=== PATIENT | male | born 1990 | race Caucasian/White ===

== ENCOUNTER 2018-05-21 13:40 | Emergency (ER) | payer SELFPAY ==
[2018-05-21 13:42] VITALS: BP 142/92; PULSE 87; RESP 18; TEMP 36.7; O2SAT 98; BMI 29.6
--- NOTE | 2018-05-21 13:55 | ED.VISSUMM ---
- ER Visit Summary Date of Service: 05/21/18 Chief Complaint: Foot pain History of Present Illness: The patient is a 27 M with right foot pain for over 2 months. Worse after playing basketball. Worse throughout the day. 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 No direct trauma. No history of this. No other complaints. Physical Examination: Wearing sandals. Tenderness to palpation of the right plantar fascia. Otherwise foot nontender. Normal inspection. Neurovascularly intact. Test Results: None indicated Emergency Department Course and Treatment: Patient has signs and symptoms of plantar fasciitis. Home therapies were discussed. Use anti-inflammatories. Wear supportive footwear. Follow-up as an outpatient. Return for any new or worsening symptoms. Treatment Plan: As above Disposition: Discharged Impression: Right plantar fasciitis This note was generated with [employer] dictation software. It may contain incorrect words, spelling, and punctuation that were not noted in review of the chart prior to signing ED Disposition - Plan for ED Patient: Chief Complaint: Lower Extremity Injury Referrals: Wally Roberts MD [Primary Care Provider] -
--- NOTE | 2018-05-21 13:59 | ED.DCSUM_ITS ---
- ER Visit Summary Date of Service: 05/21/18 Chief Complaint: Foot pain History of Present Illness: The patient is a 27 M with right foot pain for over 2 months. Worse after playing basketball. Worse throughout the day. 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 No direct trauma. No history of this. No other complaints. Physical Examination: Wearing sandals. Tenderness to palpation of the right plantar fascia. Otherwise foot nontender. Normal inspection. Neurovascularly intact. Test Results: None indicated Emergency Department Course and Treatment: Patient has signs and symptoms of plantar fasciitis. Home therapies were discussed. Use anti-inflammatories. Wear supportive footwear. Follow-up as an outpatient. Return for any new or worsening symptoms. Treatment Plan: As above Disposition: Discharged Impression: Right plantar fasciitis This note was generated with [employer] dictation software. It may contain incorrect words, spelling, and punctuation that were not noted in review of the chart prior to signing ED Disposition - Plan for ED Patient: Chief Complaint: Lower Extremity Injury Referrals: Wally Roberts MD [Primary Care Provider] -
--- NOTE | 2018-05-21 13:59 | ED.DEP ---
ED Disposition - Plan for ED Patient: Chief Complaint: Lower Extremity Injury Instructions: ED Plantar Fasciitis Referrals: Gilberto Heath DPM [STAFF PHYSICIAN] -
== END 2018-05-21 14:18 | disposition home or self-care (01) ==
LOC: ED 14:14
PROVIDERS: Emergency Provider Emergency Medicine; Family Provider Family Medicine; PCP Family Medicine
DX: M72.2 Plantar fascial fibromatosis (principal); Z72.0 Tobacco use
CPT/HCPCS: 99282

== ENCOUNTER 2020-01-03 06:17 | Emergency (ER) | payer BC, SELFPAY ==
[2020-01-03 06:18] VITALS: BP 134/80; PULSE 106; RESP 16; TEMP 36.8; O2SAT 98; BMI 29.5
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
[2020-01-03 07:59] VITALS: BP 129/76; PULSE 99; RESP 14; O2SAT 99
== END 2020-01-03 08:02 | disposition home or self-care (01) ==
PROVIDERS: Emergency Provider Emergency Medicine; PCP Family Medicine
DX: S51.011A Laceration without foreign body of right elbow, initial encounter (principal); W01.0XXA Fall on same level from slipping, tripping and stumbling without subsequent striking against object, initial encounter; Y93.9 Activity, unspecified; Y92.9 Unspecified place or not applicable; F17.200 Nicotine dependence, unspecified, uncomplicated
CPT/HCPCS: 12002; 99282

== ENCOUNTER 2020-05-22 16:04 | Emergency (ER) | payer BC, SELFPAY ==
[2020-05-22 16:05] VITALS: BP 121/80; PULSE 91; RESP 16; TEMP 36.4; O2SAT 98; BMI 30.4
[2020-05-22] MEDS: HYDROcodone Bitartrate/Apap 5/325 Tablet PO (16:51)
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
--- NOTE | 2020-05-22 17:45 | DCINST.ED_ITS ---
ED Disposition - Plan for ED Patient: Disposition: Home or Assisted Living Instructions: ED Clavicle Fracture Prescriptions: Hydrocodone/Acetaminophen [[place] 7.5-325 Tablet] 1 ea PO Q4H PRN PRN 5 Days #20 tab PRN Reason: Pain Or Fever Prescription Printed Referrals: Jp Hamilton MD [STAFF PHYSICIAN] - Additional Instructions: Ice to your collarbone to decrease pain and swelling. Sling to immobilize your shoulder. Motrin and [place] for pain. Call and follow-up with orthopedic physician Dr. Piter Hamilton for further evaluation of your collarbone or clavicle fracture.
[2020-05-22 18:00] VITALS: BP 118/86; PULSE 82; RESP 18; O2SAT 98
== END 2020-05-22 18:01 | disposition home or self-care (01) ==
PROVIDERS: Emergency Provider Emergency Medicine; PCP Family Medicine
DX: S42.022A Displaced fracture of shaft of left clavicle, initial encounter for closed fracture (principal); V86.55XA Driver of 3- or 4- wheeled all-terrain vehicle (ATV) injured in nontraffic accident, initial encounter; Y93.9 Activity, unspecified; Y92.9 Unspecified place or not applicable; Y99.9 Unspecified external cause status; Z72.0 Tobacco use
CPT/HCPCS: 71046; 99283

== ENCOUNTER → 2020-06-01 12:30 | Outpatient (CLI) | payer BC, SELFPAY ==
[2020-05-22 16:05] VITALS: BMI 30.4
[2020-06-01 12:54] LABS: Absolute Lymphocyte Count 3.22 X10^3/uL (0.83-4.51); Absolute Neutrophil Count 6.8 X10^3/uL (2.0-7.7); Basophil# 0.04 X10^3/uL; Basophil% 0.4 % (0-1); Eosinophil# 0.29 X10^3/uL; Eosinophils% 2.7 % (0-5); Hematocrit 44.7 % (40-54); Hemoglobin 14.9 g/dL (13.0-16.5); Lymphocyte # 3.22 X10^3/ul (4.0); Lymphocyte % 29.6 % (19-41); Mean Corp Hgb Conc 33.3 g/dL (32-36); Mean Corpuscular Hgb 30.1 pg (27.0-32.0); Mean Corpuscular Volume 90.3 fL (80-94); Monocyte% 4.6 % (0-10); NRBC Flagged by Analyzer 0 % (0-5); Neutrophil # 6.81 X10^3/uL (2.7-7.7); Neutrophil % 62.4 % (47-70); Platelet Count 321 K/mm3 (150-450); RBC Distribution Width CV 12.5 % (11.6-14.6); RBC Distribution Width SD 41.1 fl (35.1-43.9); Red Blood Count 4.95 M/mm3 (4.6-6.2); White Blood Count 10.9 K/mm3 (4.4-11.0)
[2020-06-01 13:22] LABS: Anion Gap 4 (5-15); BUN 21 mg/dL (7-18); BUN/Creat Ratio 22.3 RATIO (10-20); Calcium,Total 9.2 mg/dL (8.5-10.1); Chloride 108 mmol/L (98-107); Creatinine, Serum 0.94 mg/dL (0.70-1.30); EST Glomerular Filtration Rate 101 mL/min (>60); Est Glom Filt Rate - Afr Amer 122 mL/min (>60); Glucose 101 mg/dL (74-106); Potassium 4.1 mmol/L (3.5-5.1); Sodium Level 139 mmol/L (136-145)
== END ==
PROVIDERS: PCP Family Medicine; Referring Provider Physician Assistant; Visit Provider Physician Assistant
DX: Z01.818 Encounter for other preprocedural examination (principal)
CPT/HCPCS: 36415; 80048; 85025

== ENCOUNTER 2020-07-22 13:00 | Outpatient (RCR) | payer BC, SELFPAY ==
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
--- NOTE | 2020-07-22 13:39 | HP.PTREVAL_ITS ---
Dr. Lake Cameron, DO, It has been my pleasure to treat ANGELICA GO over the last 4 visits for L clavicle Fx. Please see the progress note below for an update on the physical therapy plan of care! Subjective: I am ready to be discharged Objective/Function: L shoulder pain 0/10. L shoulder ROM: flex= 165, abd= 145. L shoulder MMT: 5/5 throughout. I with HEP Plan Plan: Recheck or discharge in 1 week. Goals Goal 1:: Decrease L shoulder pain x 50% to aid with sleep Goal Time Frame: 4-6 Weeks Goal Progress: Goal Met Goal 2:: Increase L shoulder flex and abd ROM x 40 degrees to aid with overhead lifting Goal Time Frame: 4-6 Weeks Goal Progress: Goal Met Goal 3:: Increase L shoulder strength x 1 grade to aid with RTW Goal Time Frame: 4-6 Weeks Goal Progress: Goal Met Goal 4:: I with HEP Goal Time Frame: 4-6 Weeks Goal Progress: Goal Met Anticipated Interventions Patient/Client Instruction: Educate patient on: Condition, Plan of Care For the Purpose of:: To improve self management Therapeutic Exercise to Include: Strength training, Endurance training, Flexibilty training, Passive ROM, Active ROM, Scapular Strength/Stabilization For the Purpose of:: To decrease pain, To increase ROM, To improve muscle performance and motor function Cryotherapy (ice pack, ice massage): Yes For the Purpose of:: To decrease pain Please do not hesitate to contact me at [phone] by phone or Fax: if you have questions or concerns regarding this new plan of care! Sincerely, Cuoc Robert, PT, ATC
--- NOTE | 2020-09-30 08:12 | HP.PT.NRP ---
ANGELICA GO was seen in my office for initial evaluation on 07/07/20. The following Plan of Care was established for this patient: Initial Frequency: 2-3x /Week Initial Duration: 4-6 Weeks Patient/Client Instruction: Educate patient on: Condition, Plan of Care For the Purpose of:: To improve self management Therapeutic Exercise to Include: Strength training, Endurance training, Flexibilty training, Passive ROM, Active ROM, Scapular Strength/Stabilization For the Purpose of:: To decrease pain, To increase ROM, To improve muscle performance and motor function Cryotherapy (ice pack, ice massage): Yes For the Purpose of:: To decrease pain This patient was last seen in our office . Pertinent comments regarding their Physical therapy will appear below: Pt was treated for 4 PT visits for L shoulder pain through the date of 07/22/20. Pt has not returned through this date and will be discontinued at this time. At this point I will be discontinuing this patient from physical therapy. I would be happy to see this patient again in the future if found appropriate by the physician. Thank you! Cuco Robert, PT, ATC
== END 2020-07-22 19:00 | disposition home or self-care (01) ==
LOC: PT 13:00
PROVIDERS: PCP Family Medicine; Referring Provider Orthopaedic Surgery; Visit Provider Orthopaedic Surgery
DX: S42.022D Displaced fracture of shaft of left clavicle, subsequent encounter for fracture with routine healing (principal)
CPT/HCPCS: 97110; 97161; 97164; 97530

== ENCOUNTER 2025-04-13 11:27 | Emergency (ER) | payer OTHER, SELFPAY ==
[2025-04-13 11:27] VITALS: BP 116/70; PULSE 84; RESP 18; TEMP 36.8; O2SAT 98
[2025-04-13 11:28] VITALS: BMI 27.8
--- NOTE | 2025-04-13 11:33 | RAD_ITS ---
PROCEDURE: ANKLE MIN 3 VIEWS 04/13/2025 REASON FOR EXAM: PAIN TECHNIQUE: ANKLE MIN 3 VIEWS COMPARISON: None. FINDINGS: Bones: No visible fracture. No suspicious bone lesion. Joints: Normal alignment. Soft tissues: Soft tissues are unremarkable. Other: No radiopaque foreign body. RAD/Ankle min 3 Views IMPRESSION: NEGATIVE ANKLE SERIES Reading Location: [id number]
--- NOTE | 2025-04-13 11:33 | ED.VIS.LOWEX ---
HPI <HEATHER Puente - Last Filed: 04/13/25 12:26> History of Present Illness Chief Complaint: Lower Extremity Injury Narrative Narrative: 34-year-old male presents with a left foot injury. Yesterday he was wakeboarding in his feet were attached to the board with Velcro straps. He wiped out and his left foot came out of the Velcro strap. He is not quite sure how he injured it but he has pain with movement of the ankle and over the lateral foot. He was able to walk yesterday but has not tried to walk on it today. No weakness or paresthesias. No other injuries. PFSH <HEATHER Puente - Last Filed: 04/13/25 12:26> PFSH Allergy/AdvReac Type Severity Reaction Status Date / Time promethazine (From Phenergan) Allergy Other Verified 04/13/25 11:29 Social History Smoking Status: Current every day smoker tobacco type: cigarettes ROS <HEATHER Puente - Last Filed: 04/13/25 12:26> ROS ED ROS Narrative Neuro: Negative for motor/sensory dysfunction. Skin: Negative for wound. Musc: Positive for left foot pain, swelling, trauma. EXAM <HEATHER Puente - Last Filed: 04/13/25 12:26> Physical Exam Narrative Exam Narrative: CONST: Patient sitting in no acute distress. EYES: Normal inspection. SKIN: Color normal, no rash, warm, dry, intact. EXTREMITIES: Very mild swelling left lateral foot with tenderness over the 4th and 5th proximal metatarsals, no deformity or crepitus. Normal appearance of the rest of the lower extremity. No tenderness of the knee. Very mild tenderness medial ankle without deformity or crepitus. Able to dorsi and plantarflex, normal sensation, 2+ DP pulse. Achilles intact. NEURO: Alert and answering questions appropriately. PSYCH: Normal affect. Const Vital Signs: 04/13/25 11:27 04/13/25 12:25 Temperature 98.3 F 98.3 F Temperature Source Oral Pulse Rate 84 86 Respiratory Rate 18 18 Blood Pressure 116/70 121/68 H Blood Pressure Mean 85 85 Pulse Ox 98 99 Oxygen Delivery Method Room Air <Dr. Lawrence Centeno MD - Last Filed: 04/13/25 11:40> Physical Exam Const Vital Signs: 04/13/25 11:27 04/13/25 12:25 Temperature 98.3 F 98.3 F Temperature Source Oral Pulse Rate 84 86 Respiratory Rate 18 18 Blood Pressure 116/70 121/68 H Blood Pressure Mean 85 85 Pulse Ox 98 99 Oxygen Delivery Method Room Air [facility] <HEATHER Puente - Last Filed: 04/13/25 12:26> [facility] Narrative Medical decision making narrative: Differential: Ankle and foot sprain versus fracture 34-year-old male injured his left foot while wakeboarding yesterday. He has mild soft tissue swelling and tenderness to the lateral foot. He reports tenderness over the ankle but there is no swelling and he has full range of motion. Neurovascular intact. X-rays of the ankle and foot are negative. He was given crutches and a postop shoe and counseled on RICE protocol. He was discharged in stable condition. I have personally performed a face to face assessment of the patient and have reviewed the JENNIFER Note. I performed a substantive portion of the visit including all aspects of the following. My cummings findings include: History is 34-year-old male wakeboarding yesterday injured his left foot when it came out of the wakeboard. No other complaints. No prior history of surgery to that foot. Exam is [well-appearing 34-year-old male. Vital signs stable afebrile. H EENT exam pupils are reactive light. Nontender. Neck nontender. Back nontender. Lungs clear. Heart regular rhythm rate about 80 no murmur. Chest wall ribs nontender. Abdomen soft nontender. Moving all 4 extremities. Neurovascularly intact. No deformity. Left hip, knee ankle nontender nonswollen. Normal dorsi plantarflexion of the left ankle. Achilles tendon intact. Normal DP pulse. No deformity to the foot. Able to wiggle his toes. Normal touch sensation. Mild lateral foot tenderness. No medial or lateral malleoli are tenderness or swelling. Patient is awake and alert.] Medical Decision Making [left foot x-ray.] Other additions or changes: [None] Radiography Diagnostic Testing: Clinical Impression(s) from Imaging Studies Ankle X-Ray 04/13/25 11:33 IMPRESSION: NEGATIVE ANKLE SERIES Reading Location: [id number] Foot X-Ray 04/13/25 11:35 IMPRESSION: NEGATIVE FOOT SERIES Reading Location: [facility] Left ankle x-ray interpreted by myself shows no fracture or dislocation. Left foot x-ray, 3 views, interpreted by myself shows no acute fracture. No dislocation. <Dr. Lawrence Centeno MD - Last Filed: 04/13/25 11:40> [facility] Narrative Medical decision making narrative: I have personally performed a face to face assessment of the patient and have reviewed the JENNIFER Note. I performed a substantive portion of the visit including all aspects of the following. My cummings findings include: History is 34-year-old male wakeboarding yesterday injured his left foot when it came out of the wakeboard. No other complaints. No prior history of surgery to that foot. Exam is [well-appearing 34-year-old male. Vital signs stable afebrile. H EENT exam pupils are reactive light. Nontender. Neck nontender. Back nontender. Lungs clear. Heart regular rhythm rate about 80 no murmur. Chest wall ribs nontender. Abdomen soft nontender. Moving all 4 extremities. Neurovascularly intact. No deformity. Left hip, knee ankle nontender nonswollen. Normal dorsi plantarflexion of the left ankle. Achilles tendon intact. Normal DP pulse. No deformity to the foot. Able to wiggle his toes. Normal touch sensation. Mild lateral foot tenderness. No medial or lateral malleoli are tenderness or swelling. Patient is awake and alert.] Medical Decision Making [left foot x-ray.] Other additions or changes: [None] Radiography Diagnostic Testing: Clinical Impression(s) from Imaging Studies Ankle X-Ray 04/13/25 11:33 IMPRESSION: NEGATIVE ANKLE SERIES Reading Location: [facility] Foot X-Ray 04/13/25 11:35 IMPRESSION: NEGATIVE FOOT SERIES Reading Location: [facility] Left foot x-ray, 3 views, interpreted by myself shows no acute fracture. No dislocation. Discharge Plan Triage Chief Complaint: Lower Extremity Injury ED Midlevel Provider: Veronica Juan ED Provider: Lawrence Centeno Dx/Rx/DC Orders Clinical Impression: Contusion of foot, left Instructions: Bruises (Contusions) Primary Care Provider: Care Physician,No Primary Referrals: Gary Roberts MD [Med Staff - Watermelon Inspector] - Activity Restrictions/Additional Instructions: The x-ray showed no broken bones. Rest, ice, elevate your foot. Take Tylenol or ibuprofen as needed. If not improving in 7 to 10 days please follow-up with your primary care doctor. Print Language: Colombian Disposition Disposition: Home, Self Care Discharge Date/Time: 04/13/25 12:25
--- NOTE | 2025-04-13 11:35 | RAD_ITS ---
PROCEDURE: FOOT MIN 3 VIEWS 04/13/2025 REASON FOR EXAM: PAIN TECHNIQUE: FOOT MIN 3 VIEWS COMPARISON: None. FINDINGS: Bones: No visible fracture. No suspicious bone lesion. Joints: Normal alignment. Soft tissues: Soft tissues are unremarkable. Other: No radiopaque foreign body. RAD/Foot min 3 Views IMPRESSION: NEGATIVE FOOT SERIES Reading Location: [id number]
--- OUTSIDE RECORDS SUMMARY | 2025-04-13 12:03 | XMS RPT_ITS | CCD ---
Author Organization [facility] [employer] [facility] Care Team Providers Care Slipper Maker Name Role Phone Fuad Olvera Unavailable Unavailable Fuad Olvera Unavailable Unavailable No Doctor Assigned, Nodr Unavailable Unavail able Encounters Encounter Date Encounter Type Care Provider Facility Start: 11-21-2017 End: 11-22-2017 Ambulatory Fuad Olvera Facility:[facility] Payers Date Payer Category Payer Unknown Summary Purpose Family History No Family History Records Found Advance Directives No Advanced Directives Records Found Additional Source Comments (unrecognized sect ion and content) No Status Records Found INFORMATION SOURCE (unrecogn ized section and content) DATE CREATED AUTHOR 04/09/2018 [facility] FOR RECORDS PERTAINING TO PATIENTS WHO ARE OR HAVE BEEN ENROLLED IN A CHEMICAL DEPENDENCY/SUBSTANCEABUSE PROGRAM, SOME INFORMATION MAY BE OMITTED. This clinical summary was aggregated from multiple sources. Caution should be exercised in using it in the provision of clinical care. This summary normalizes information from multiple sources, and as a consequence, information in this document may materially change the coding, format and clinical context of patient data. In addition, data may be omitted in some cases. CLINICAL DECISIONS SHOULD BE BASED ON THE PRIMARY CLINICAL RECORDS. [facility] [employer] provides no warranty or guarantee of the accuracy or completeness of information in this document.
[2025-04-13 12:25] VITALS: BP 121/68; PULSE 86; RESP 18; TEMP 36.8; O2SAT 99
== END 2025-04-13 12:25 | disposition home or self-care (01) ==
PROVIDERS: Emergency Provider Emergency Medicine; Visit Provider Emergency Medicine
DX: S90.32XA Contusion of left foot, initial encounter (principal); F17.210 Nicotine dependence, cigarettes, uncomplicated; X58.XXXA Exposure to other specified factors, initial encounter; Y93.17 Activity, water skiing and wake boarding
CPT/HCPCS: 73610; 73630; 99284